=== PATIENT | male | born 1945 | race African-American/Black ===

== ENCOUNTER 2016-11-05 01:30 | Inpatient (IN) | payer OTHER ==
[2016-11-05] VITALS (10 sets, daily range): BP systolic 152–170; BP diastolic 80–92; PULSE 67–76; TEMP 36.7–37.7; O2SAT 93–100; Ht 170.2 cm; Wt 96.7 kg
[~2016-11-05] VITALS: Ht 170.2 cm; Wt 96.7 kg
--- NOTE | 2016-11-05 01:48 | EMERGENCY ROOM VISIT NOTE ---
History Report prepared by Jewel: Judi Pruett Under the Supervision of: Dr. Adams Land M.D. First contact with patient: 01:38 Chief Complaint: SYNCOPE Stated Complaint: SYNCOPE History of Present Illness The patient is a 71 year old male who presents to the Emergency Room with complaints of an episode of near syncope that occurred this morning. Per patient 's daughter, the patient never completely lost consciousness but was unresponsive for about 10 minutes. He appeared pale, sweaty, and his eyes were rolled back. He had several episodes of emesis. Currently, he is much more oriented, but is still very sleepy, per daughter. His daughter notes that he has had similar episodes of near syncope/altered mental status in the past. The patient has a history of hypertension and asthma. He does not have a history of heart problems. Denies chest pain, shortness of breath, or other complaints. His daughter notes that he did smoke marijuana a few hours ago. Denies any other drug use or alcohol use. The patient is on atenolol, amlodipine, hydrochlorothiazide, terazosin, and aspirin. Source of History: patient, family (daughter) Onset: this morning Position: other (global) Quality: other (near syncope) Timing: other (episode) Associated Symptoms: + vomiting, No LOC, No SOB, No chest pain Note: Other symptoms: tired Review of Systems See HPI for pertinent positives & negatives. A total of 10 systems reviewed and were otherwise negative. Past Medical & Surgical Medical Problems: (1) Altered mental status (2) Asthma (3) HTN (hypertension) Family History No pertinent family history stated. Social History Drug Use: marijuana Current/Historical Medications Scheduled Amlodipine (Norvasc), 10 MG PO QAM Aspirin (Aspirin Ec), 162 MG PO QAM Atenolol (Tenormin), 25 MG PO QAM Hydrochlorothiazide (Hctz), 25 MG PO QAM Terazosin Hcl (Hytrin), 2 MG PO HS Scheduled PRN Dimenhydrinate (Motion Sickness), 50 MG PO DIRECTED PRN for Dizziness or Vertigo Allergies Coded Allergies: Shellfish (Verified Allergy, Severe, SHORTNESS OF BREATH, 11/05/16) Physical Exam Vital Signs Date Time Temp Pulse Resp B/P Pulse Ox O2 Delivery O2 Flow Rate FiO2 11/05/16 02:26 56 16 155/90 98 Nasal Cannula 2.0 11/05/16 01:47 36.7 53 14 161/91 98 Nasal Cannula 2.0 11/05/16 01:38 49 Physical Exam GENERAL: Patient is tired appearing, appears to be under the influence of a sedative, and in no acute distress. HEENT: No acute trauma, normocephalic atraumatic, mucous membranes moist, no nasal congestion, no scleral icterus, large lower lip (daughter states this is normal size for him). NECK: No stridor, no adenopathy, no meningismus, trachea is midline. LUNGS: No dyspnea. Clear to auscultation and equal bilaterally. No wheeze, no rhonchi. HEART: Bradycardic rate and regular rhythm. No murmurs, rubs, gallops appreciated. ABDOMEN: Soft, nontender, bowel sounds positive, no masses appreciated, no peritonitis. BACK: No midline tenderness, no CVA tenderness EXTREMITIES: Normal motion all extremities, no cyanosis, no edema. NEUROLOGIC: Alert and oriented but somnolent, no acute motor or sensory deficits , no focal weakness, cranial nerves grossly intact. SKIN: No rash, no jaundice, no diaphoresis. Medical Decision & Procedures ER Provider Diagnostic Interpretation: CT results as stated below per interpretation by me and the radiologist: CT HEAD: No intracranial hemorrhage or CT evidence of acute infarct. The ventricles are prominent out of proportion to the sulci. May represent central volume loss or hydrocephalus. Confluent areas of nonspecific periventricular white matter low- attenuation. 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 No midline shift. Incidental 5 mm left sinus osteoma. Radiologist: Louis Islas MD. X ray results are stated below per my interpretation: Chest: 1 view: No infiltrate, no effusion, normal cardiac border. Chronic lung disease. Laboratory Results 11/05/16 01:40 Red Blood Count 4.15, Mean Corpuscular Volume 88.7, Mean Corpuscular Hemoglobin 30.1, Mean Corpuscular Hemoglobin Concent 34.0, Mean Platelet Volume 11.8, Neutrophils (%) (Auto) 20.7, Lymphocytes (%) (Auto) 67.4, Monocytes (%) (Auto) 7.7, Eosinophils (%) (Auto) 3.8, Basophils (%) (Auto) 0.4, Neutrophils # (Auto) 1.10, Lymphocytes # (Auto) 3.57, Monocytes # (Auto) 0.41, Eosinophils # (Auto) 0.20, Basophils # (Auto) 0.02 11/05/16 01:40 Test 11/05/16 01:40 11/05/16 01:43 11/05/16 02:06 White Blood Count 5.30 K/uL (4.8-10.8) Red Blood Count 4.15 M/uL (4.7-6.1) Hemoglobin 12.5 g/dL (14.0-18.0) Hematocrit 36.8 % (42-52) Mean Corpuscular Volume 88.7 fL (80-100) Mean Corpuscular Hemoglobin 30.1 pg (25-34) Mean Corpuscular Hemoglobin Concent 34.0 g/dl (32-36) Platelet Count 201 K/uL (130-400) Mean Platelet Volume 11.8 fL (7.4-10.4) Neutrophils (%) (Auto) 20.7 % Lymphocytes (%) (Auto) 67.4 % Monocytes (%) (Auto) 7.7 % Eosinophils (%) (Auto) 3.8 % Basophils (%) (Auto) 0.4 % Neutrophils # (Auto) 1.10 K/uL (1.4-6.5) Lymphocytes # (Auto) 3.57 K/uL (1.2-3.4) Monocytes # (Auto) 0.41 K/uL (0.11-0.59) Eosinophils # (Auto) 0.20 K/uL (0-0.5) Basophils # (Auto) 0.02 K/uL (0-0.2) RDW Standard Deviation 44.7 fL (36.4-46.3) RDW Coefficient of Variation 13.7 % (11.5-14.5) Immature Granulocyte % (Auto) 0.0 % Immature Granulocyte # (Auto) 0.00 K/uL (0.00-0.02) Ovalocytes 1+ D-Dimer 220 ug/L FEU (0-500) Anion Gap 6.0 mmol/L (3-11) Est Creatinine Clear Calc Drug Dose 40.7 ml/min Estimated GFR () 38.3 Estimated GFR (Non- 33.1 BUN/Creatinine Ratio 12.0 (10-20) Bedside Glucose 95 mg/dl (70-99) Calcium Level 9.9 mg/dl (8.5-10.1) Total Bilirubin 0.4 mg/dl (0.2-1) Direct Bilirubin < 0.1 mg/dl (0-0.2) Aspartate Amino Transf (AST/SGOT) 39 U/L (15-37) Alanine Aminotransferase (ALT/SGPT) 52 U/L (12-78) Alkaline Phosphatase 81 U/L (45-117) Total Creatine Kinase 304 U/L (39-308) Creatine Kinase MB 2.8 ng/ml (0.5-3.6) Creatine Kinase MB Ratio 0.9 (0-3.0) Troponin I < 0.015 ng/ml (0-0.045) Total Protein 8.9 gm/dl (6.4-8.2) Albumin 4.1 gm/dl (3.4-5.0) Ethyl Alcohol mg/dL < 3.0 mg/dl (0-3) Laboratory results as reviewed by me. ECG Indication: other (near syncope) Rate (beats per minute): 51 Rhythm: sinus bradycardia Findings: no acute ischemic change, no ectopy, other (nonspecific T wave inversion) Comparison ECG Date: no prior available ED Course 0139: The patient was evaluated in room C11. A complete history and physical exam was performed. 0340: I reassessed the patient. He was sleeping. 0417: I discussed the case with Dr. Kunal Millard [facility] Hospitalist. The patient will be evaluated for further management. Medical Decision Differential: Vaso-vagal, Intracerebral Event, Neurologic, Infectious, Volume Deficiency, Hypoglycemia, Electrolyte Abnormality, Cardiac Source, Toxicologic, amongst other pathologies entertained. 71 yr old male arrives s/p a 10 minute episode of AMS. He apparently was smoking marijuana earlier in the day. He is in no distress though is a bit somnolent currently, likely marijuana related. CT with questionable hydrocephalus vs chronic disease. No acute neuro deficits thus I do not feel requires emergent Neurosurgical intervention. EKG with some t wave inversions of uncertain significance though with initial trop negative will hold on any blood thinners. Labs otherwise negative. He is stable in no distress though continues to be mildly somnolent. Will need to come in for syncopal work-up. Consults Time Called: 0400 Consulting Physician: Dr. Kunal Millard [facility] Hospitalist Returned Call: [phone] I discussed the case with him. The patient will be evaluated for further management. Impression Primary Impression: Syncope Additional Impressions: Altered mental status Marijuana use Bradycardia Scribe Attestation The scribe's documentation has been prepared under my direction and personally reviewed by me in its entirety. I confirm that the note above accurately reflects all work, treatment, procedures, and medical decision making performed by me. Departure Information Dispostion Being Evaluated By Hospitalist Patient Instructions [facility] Problem Qualifiers Primary Impression: Syncope Syncope type: unspecified Qualified Codes: R55 - Syncope and collapse Additional Impressions: Altered mental status Altered mental status type: transient alteration of awareness Qualified Codes : R40.4 - Transient alteration of awareness
[2016-11-05 01:59] LABS: HEMATOCRIT 36.8 % (42-52); MEAN CELL VOLUME 88.7 fL (80-100); MEAN CORPUSCULAR HEMOGLOBIN 30.1 pg (25-34); MEAN PLATELET VOLUME 11.8 fL (7.4-10.4); PLATELET COUNT 201 K/uL (130-400); RED BLOOD COUNT 4.15 M/uL (4.7-6.1)
[2016-11-05 02:17] LABS: BLOOD UREA NITROGEN 24 mg/dl (7-18); CALCIUM 9.9 mg/dl (8.5-10.1); CARBON DIOXIDE 31 mmol/L (21-32); CHLORIDE 105 mmol/L (98-107); GLUCOSE 111 mg/dl (70-99); POTASSIUM 3.2 mmol/L (3.5-5.1); SODIUM 142 mmol/L (136-145)
[2016-11-05 02:22] LABS: CKMB/CK RATIO 0.9 (0-3.0)
[2016-11-05] MEDS ORDERED: HYT/2 PO (02:59)
[2016-11-05] MEDS ORDERED: ATEN-173 PO (02:59)
[2016-11-05] MEDS ORDERED: HYDR25TA4 PO (02:59)
[2016-11-05] MEDS ORDERED: ASPI81TA28 PO (02:59)
[2016-11-05] MEDS ORDERED: DIME50TA2 PO (02:59)
[2016-11-05] MEDS ORDERED: AMLO-114 PO (02:59)
[2016-11-05 03:03] LABS: BASO % 0.4 %; BASO ABS # 0.02 K/uL (0-0.2); COMPLETE YES; EOS % 3.8 %; LYMPH % 67.4 %; LYMPH ABS # 3.57 K/uL (1.2-3.4); MONO % 7.7 %; NEUT % 20.7 %; OVALOCYTES 1+
[2016-11-05 04:30] LABS: ALKALINE PHOSPHATASE 81 U/L (45-117); ALT/SGPT 52 U/L (12-78); AST/SGOT 39 U/L (15-37)
[2016-11-05] MEDS ORDERED: ACETAMINOPHEN 325 MG TAB PO PRN ×2 (04:45)
[2016-11-05] MEDS ORDERED: DiphenhydrAMINE HCL 50 MG/ML VIAL IV PRN (04:45)
[2016-11-05] MEDS ORDERED: NITROGLYCERIN 0.4 MG SL PER TAB CHARGE SL PRN (04:45)
[2016-11-05] MEDS ORDERED: ZOLPIDEM TARTRATE 5 MG TAB PO PRN (04:45)
[2016-11-05] MEDS ORDERED: MoRPHine SULFATE 2 MG/ML CARP IV PRN (04:45)
[2016-11-05] MEDS ORDERED: ONDANSETRON INJ 2 MG/ML 2 ML VIAL IV PRN (04:45)
[2016-11-05] MEDS ORDERED: LORAZEPAM 2 MG/ML 1 ML VIAL IV PRN (04:45)
[2016-11-05] MEDS ORDERED: ACETAMINOPHEN IV 100 ML IV PRN (04:45)
[2016-11-05] MEDS ORDERED: PROMETHAZINE HCL INJ 12.5 MG in SODIUM CHLORIDE 0.9% 50ML 50 ML IV PRN (04:45)
--- NOTE | 2016-11-05 04:55 | History and Physical ---
History & Physical Date & Time of Service: Nov 05, 2016 at 04:41 Chief Complaint: Syncope Primary Care Physician: No Doctor, Assigned History of Present Illness Source: patient, family The patient is a 71-year-old male who presents emergency department with an unresponsive episode of 10 minutes duration witnessed by his daughter that consisted of appearing pale, sweaty and eyes rolling back in his head, along with several episodes of emesis. Since arrival in the emergency department, the patient has become more oriented but daughter reports is still very sleepy and lethargic. He has history of hypertension and asthma, and daughter reports she's been taking his medications as directed. She also reports that he did smoke marijuana a few hours prior to arrival. She reports that he does have an ongoing issue with imbalance, control of urination and memory. Past Medical/Surgical History Medical Problems: (1) Asthma Status: Chronic (2) HTN (hypertension) Status: Chronic Social History Smoking Status: Never Smoker Smokeless Tobacco Use: No Alcohol Use: none Drug Use: marijuana Housing status: lives with family Occupational Status: retired Multi-Drug Resistant Organisms History of MDRO: No Allergies Coded Allergies: Shellfish (Verified Allergy, Severe, SHORTNESS OF BREATH, 11/05/16) Home Medications Scheduled Amlodipine (Norvasc), 10 MG PO QAM Aspirin (Aspirin Ec), 162 MG PO QAM Atenolol (Tenormin), 25 MG PO QAM Hydrochlorothiazide (Hctz), 25 MG PO QAM Terazosin Hcl (Hytrin), 2 MG PO HS Scheduled PRN Dimenhydrinate (Motion Sickness), 50 MG PO DIRECTED PRN for Dizziness or Vertigo Review of Systems The patient denies chest pain, palpitations, shortness of breath, cough, lower extremity swelling, vision change, hearing change, sore throat, fevers, chills, sweats, weight change, abdominal pain, pelvic pain, blood in urine or stool, dysuria, rash, abnormal bruising or bleeding, focal weakness, numbness or tingling in arms or legs The review of systems is otherwise negative other than for that already noted above, and at least 10 systems have been reviewed. Physical Exam Vital Signs Date Time Temp Pulse Resp B/P Pulse Ox O2 Delivery O2 Flow Rate FiO2 11/05/16 04:35 60 20 146/89 97 Room Air 11/05/16 02:26 56 16 155/90 98 Nasal Cannula 2.0 11/05/16 01:47 36.7 53 14 161/91 98 Nasal Cannula 2.0 11/05/16 01:38 49 The patient is lethargic, responds slowly to some questions but eyes remain closed, normocephalic and atraumatic, lying in bed and in no acute distress. HEENT--PERRL, EOMI, mucous membranes and oropharynx dry. Neck--supple, no JVD or bruits, thyroid normal, trachea midline, no adenopathy. Heart--normal S1 and S2, no extra beats, no murmurs, rubs or gallops. Lungs--clear bilaterally with good air movement, no respiratory distress, no accessory muscle use. Abdomen--normal bowel sounds and soft, nontender and nondistended, no hernias or masses, no organomegaly. Extremities--no cyanosis, clubbing or edema. There are good distal pulses b/l. Dermatologic--normal skin turgor, normal color, warm and dry, no abnormal lymph nodes, no rash. Neurologic--cranial nerves II through XII grossly intact. Rheumatologic--normal range of motion, nontender, muscles and joints. Psychiatric--lethargic, minimally responsive Diagnostics Laboratory Results Results Past 24 Hours Test 11/05/16 01:40 11/05/16 01:43 11/05/16 02:06 Range/Units White Blood Count 5.30 4.8-10.8 K/uL Red Blood Count 4.15 4.7-6.1 M/uL Hemoglobin 12.5 14.0-18.0 g/dL Hematocrit 36.8 42-52 % Mean Corpuscular Volume 88.7 80-100 fL Mean Corpuscular Hemoglobin 30.1 25-34 pg Mean Corpuscular Hemoglobin Concent 34.0 32-36 g/dl Platelet Count 201 130-400 K/uL Mean Platelet Volume 11.8 7.4-10.4 fL Neutrophils (%) (Auto) 20.7 % Lymphocytes (%) (Auto) 67.4 % Monocytes (%) (Auto) 7.7 % Eosinophils (%) (Auto) 3.8 % Basophils (%) (Auto) 0.4 % Neutrophils # (Auto) 1.10 1.4-6.5 K/uL Lymphocytes # (Auto) 3.57 1.2-3.4 K/uL Monocytes # (Auto) 0.41 0.11-0.59 K/uL Eosinophils # (Auto) 0.20 0-0.5 K/uL Basophils # (Auto) 0.02 0-0.2 K/uL RDW Standard Deviation 44.7 36.4-46.3 fL RDW Coefficient of Variation 13.7 11.5-14.5 % Immature Granulocyte % (Auto) 0.0 % Immature Granulocyte # (Auto) 0.00 0.00-0.02 K/uL Ovalocytes 1+ D-Dimer 220 0-500 ug/L FEU Sodium Level 142 136-145 mmol/L Potassium Level 3.2 3.5-5.1 mmol/L Chloride Level 105 98-107 mmol/L Carbon Dioxide Level 31 21-32 mmol/L Anion Gap 6.0 3-11 mmol/L Blood Urea Nitrogen 24 7-18 mg/dl Creatinine 2.00 0.60-1.40 mg/dl Est Creatinine Clear Calc Drug Dose 40.7 ml/min Estimated GFR () 38.3 Estimated GFR (Non- 33.1 BUN/Creatinine Ratio 12.0 10-20 Bedside Glucose 95 70-99 mg/dl Random Glucose 111 70-99 mg/dl Calcium Level 9.9 8.5-10.1 mg/dl Total Bilirubin 0.4 0.2-1 mg/dl Direct Bilirubin < 0.1 0-0.2 mg/dl Aspartate Amino Transf (AST/SGOT) 39 15-37 U/L Alanine Aminotransferase (ALT/SGPT) 52 12-78 U/L Alkaline Phosphatase 81 45-117 U/L Total Creatine Kinase 304 39-308 U/L Creatine Kinase MB 2.8 0.5-3.6 ng/ml Creatine Kinase MB Ratio 0.9 0-3.0 Troponin I < 0.015 0-0.045 ng/ml Total Protein 8.9 6.4-8.2 gm/dl Albumin 4.1 3.4-5.0 gm/dl Ethyl Alcohol mg/dL < 3.0 0-3 mg/dl CXR normal EKG EKG shows sinus bradycardia 51, with mild ST segment flattening and T-wave inversion. Impression Assessment and Plan Unresponsive episode, with continued lethargy, EKG changes suggestive of lateral ischemia, an CT of brain suggestive of possible hydrocephalus. Abnormal EKG--the patient will be admitted to the telemetry unit, for serial cardiac enzymes, cardiac rhythm monitoring and a 2-D echocardiogram with Dopplers. We'll continue amlodipine 10 mg by mouth every morning, enteric- coated aspirin 160 mg by mouth every morning, there is Zosyn 2 mg by mouth at bedtime. We'll split atenolol from 25 mg every morning to 12.5 mg by mouth twice a day, and hold HCTZ 25 mg every morning due to renal sufficiency and hypokalemia. Renal insufficiency/hypokalemia--creatinine was 2.0 and potassium was 3.2. We' ll hold HCTZ as noted above, placed on normal saline at 100 ML's per hour, and repeat BMP and magnesium levels. We'll order a renal ultrasound. Volume loss on CT suggestive of possible hydrocephalus--we'll order a MRI the brain for further assessment. He does of note, by the daughter's history, have imbalance, urinary dysfunction, and declining mental function. Drug use--recent use of marijuana. 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 Y/N: Yes Risk Level: Moderate Given or contraindicated: SCD's
[2016-11-05] MEDS: SODIUM CHLORIDE 0.9% 1000ML 1,000 ML IV SCH ×2 (05:50→18:27)
--- NOTE | 2016-11-05 07:41 | DIAGNOSTIC IMAGING REPORT ---
CHEST ONE VIEW PORTABLE CLINICAL HISTORY: Syncope. Acute change in mental status. COMPARISON STUDY: No previous studies for comparison. FINDINGS: The heart is mildly enlarged. There is mild basilar interstitial thickening. There is no lobar consolidation. There is no overt failure. There are no pleural effusions.[ IMPRESSION: Mild cardiomegaly and mild basilar interstitial thickening. No evidence of lobar consolidation. Electronically signed by: Javad Newberry M.D. 11/05/2016 7:40 AM Dictated Date/Time: 11/05/2016 7:40 AM
--- NOTE | 2016-11-05 08:04 | DIAGNOSTIC IMAGING REPORT ---
CT HEAD WITHOUT CONTRAST (CT) CLINICAL HISTORY: Syncope. Acute change in mental status. COMPARISON STUDY: No previous studies for comparison. TECHNIQUE: Axial CT of the brain is performed from the vertex to the skull base. IV contrast was not administered for this examination. CT DOSE: 537.48 mGy.cm FINDINGS: No intra or extra-axial mass lesions are visualized. There is no CT evidence of acute cortical infarction. There is no evidence of midline shift. There is no acute hemorrhage. No calvarial fractures are visualized. There are patchy white matter hypodensities likely on a small vessel basis. There is a deep white matter lacunar infarct adjacent to the body left lateral ventricle. There is mild ventricular dilatation, likely secondary to volume loss. There is no evidence of acute sinusitis. 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 IMPRESSION: No acute intracranial findings Electronically signed by: Javad Newberry M.D. 11/05/2016 8:03 AM Dictated Date/Time: 11/05/2016 8:01 AM
--- NOTE | 2016-11-05 08:07 | DIAGNOSTIC IMAGING REPORT ---
EXAMINATION: RENAL ULTRASOUND CLINICAL HISTORY: RENAL INSUFFICIENCY COMPARISON STUDY: None FINDINGS: The right kidney measures 9.6 cm.. The left kidney measures 10.5 cm. There is no evidence of hydronephrosis. There is a 9 mm upper pole right renal cyst. No bladder abnormalities are visualized. Bilateral ureteral jets were visualized. The prostate is enlarged, measuring 6.5 cm in diameter.. IMPRESSION : 1. 9 mm upper pole right renal cyst 2. No evidence of hydronephrosis 3. Symmetric renal size and cortical thickness 4. Prostamegaly Electronically signed by: Javad Newberry M.D. 11/05/2016 8:06 AM Dictated Date/Time: 11/05/2016 8:04 AM
[2016-11-05] MEDS: AMLODIPINE BESYLATE 5 MG TAB PO SCH (08:30)
[2016-11-05] MEDS: ASPIRIN 81 MG ECTAB PO SCH (08:31)
--- NOTE | 2016-11-05 10:55 | DIAGNOSTIC IMAGING REPORT ---
MRI OF THE BRAIN WITHOUT AND WITH IV CONTRAST CLINICAL HISTORY: Syncope. Acute change in mental status. Ventricular dilatation. COMPARISON STUDY: CT scan dated 11/05/2016 TECHNIQUE: MRI of the brain was performed from the vertex to the skull base utilizing various T1 and T2 weighted sequences. Following the IV administration of 9 mL of Gadavist contrast, additional enhanced images were obtained. FINDINGS: Sagittal T1, axial diffusion, proton density and T2 weighted axial, coronal FLAIR, and pre and post axial T1-weighted images were acquired. These were supplemented with post gadolinium coronal T1 weighted images. No intra or extra-axial mass lesions are visualized. Axial diffusion-weighted images reveal no evidence of acute or subacute infarction. There is mild to moderate ventricular dilatation, slightly greater than expected for the degree of cortical atrophy Proton density T2-weighted and FLAIR images reveal moderate foci of increased T2 signal within the periventricular deep white matter. There is an old lacunar infarct within the white matter adjacent to the left lateral ventricle. There are no abnormal flow voids. There is no evidence of pathologic enhancement. IMPRESSION: 1. No evidence of intracranial mass 2. No evidence of acute or subacute infarction 3. Moderate foci of increased T2 signal within the periventricular deep white matter 3. Ventricular dilatation, slightly greater than expected for the degree of cortical atrophy. Clinical correlation in regards to normal pressure hydrocephalus is recommended. Electronically signed by: Javad Newberry M.D. 11/05/2016 10:54 AM Dictated Date/Time: 11/05/2016 10:50 AM
[2016-11-05 17:39] LABS: URINE APPEARANCE CLEAR (CLEAR); URINE BILIRUBIN NEG (NEG); URINE COLOR YELLOW; URINE EPITHELIAL CELL AUTO 0-5 /lpf (0-5); URINE NITRITE NEG (NEG); URINE SPECIFIC GRAVITY 1.025 (1.000-1.030); UROBILINOGEN NEG (NEG); ZZUR CULT IF INDIC CLEAN CATCH NO
[2016-11-05 17:40] LABS: MANUAL MICROSCOPIC REQUIRED? NO; REVIEW REQ? NO
[2016-11-05 17:56] LABS: BENZODIAZEPINE, URINE NEG (NEG); COCAINE,URINE NEG (NEG); PHENCYCLIDINE, URINE NEG (NEG)
--- NOTE | 2016-11-05 20:19 | Progress Note ---
Progress Note Patient was admitted in the early am this day. I did evaluate the patient and do a physical exam. I reported to the patient the findings of his studies to date. Then Dr. Martinez spoke with the daughter as I was attending another patient.
[2016-11-05 20:34] LABS: BASO % 0.1 %; BASO ABS # 0.01 K/uL (0-0.2); COMPLETE YES; EOS % 1.3 %; HEMATOCRIT 34.2 % (42-52); IG% 0.1 %; LYMPH % 34.2 %; LYMPH ABS # 2.34 K/uL (1.2-3.4); MEAN CORPUSCULAR HEMOGLOBIN 30.1 pg (25-34); MEAN PLATELET VOLUME 11.4 fL (7.4-10.4); MONO % 8.2 %; NEUT % 56.1 %; PLATELET COUNT 178 K/uL (130-400); RED BLOOD COUNT 3.76 M/uL (4.7-6.1); WHITE BLOOD COUNT 6.85 K/uL (4.8-10.8)
[2016-11-05 21:04] LABS: BUN/CREATININE RATIO 12.7 (10-20); CALCIUM 9.4 mg/dl (8.5-10.1); MAGNESIUM 1.8 mg/dl (1.8-2.4)
[2016-11-06] VITALS (8 sets, daily range): BP systolic 134–178; BP diastolic 74–92; PULSE 65–70; TEMP 36.6–37.2; O2SAT 92–96
[2016-11-06] MEDS: ASPIRIN 81 MG ECTAB PO SCH (07:37)
[2016-11-06] MEDS: AMLODIPINE BESYLATE 5 MG TAB PO SCH (07:38)
--- NOTE | 2016-11-06 10:03 | Neurology Consultation ---
Neurology Consultation Date of Consultation: Nov 06, 2016. Attending Physician: Suhail Syed M.D. Primary Care Physician: No Doctor, Assigned Reason for Consultation: Patient is a 71-year-old, who was asked to see the request of Dr. Syed for neurologic consultation regarding the question of normal pressure hydrocephalus History of Present Illness Source: patient, caregiver, hospital records The patient lives in [facility] and is here in the [place] area visiting his daughter. Patient tells me that he's never had a stroke or convulsion/seizure disorder Over the last year he has had a number of issues which she did not have previous. He has had proximally for passing out episodes over the last year. He does not get much of a warning although occasionally he may get a little nausea. He will be out for so many minutes and doesn't recall the incident. He can have vomiting afterwards. He does not have any noted tongue biting or incontinence of urine and has not had a generalized tonic-clonic seizure activity associated. His most recent one was yesterday. He became pale and sweaty and his eyes rolled back. He vomited 3 times. He was unresponsive for 10 minutes. Directed emergency room at 0138 hours on November 05. Blood pressure was 161/91 , pulse was 53 and regular, respiratory rate was 14 and temperature 36.7. O2 saturation was 98%. He was somnolent but otherwise unremarkable. CT scan of the head showed some possible hydrocephalus diffusely. Chest x-ray was unremarkable. CBC showed a mild anemia chem profile showed elevated BUN and creatinine. Patient had an MRI of the brain which showed no acute stroke. There was moderate old small vessel ischemic disease diffusely. Ventricular system seemed enlarged slightly out of proportion to the amount of atrophy which was minimal. This morning, the patient feels back to baseline. He has no weakness, dizziness , numbness, headache, pain, confusion, chest pain, or abdominal discomfort. With further history he tells me that over the last year his memory has been off and gradually been a little bit worse. Over the last year his balance has been poor and he uses a cane. He has not fallen. He has frequency and urgency and can have incontinence at times. Past Medical/Surgical History Medical Problems: (1) Bradycardia Status: Acute (2) Marijuana use Status: Acute (3) Syncope Status: Acute Hypertension, for at least 10 years Asthma Memory dysfunction Gait disturbance Urinary incontinence History of left Love's palsy 5 years ago Post-tonsillectomy in the past Recent scrotal cyst surgery Family History Mother in her late 70s of some type of cancer Father age 84 heart disease Social History Patient never smoked cigarettes. He does smoke marijuana. 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[employer]INTERR[employer] and has been around paints, varnishes and other fixatives Smoking Status: Never smoker Smokeless Tobacco Use: No Alcohol Use: occasionally Drug Use: marijuana Occupation Status: retired Allergies Coded Allergies: Shellfish (Verified Allergy, Severe, SHORTNESS OF BREATH, 11/05/16) Current Inpatient Medications Current Inpatient Medications Medications (Trade) Dose Ordered Sig/Charlene Route Start Time Stop Time Status Last Admin Dose Admin Zolpidem Tartrate (Ambien Tab) 5 mg HSZ PRN PO 11/05/16 04:45 12/05/16 04:44 Nitroglycerin (Nitrostat Tab) 0.4 mg UD PRN SL 11/05/16 04:45 12/05/16 04:44 Amlodipine Besylate (Norvasc Tab) 10 mg QAM PO 11/05/16 09:00 12/05/16 08:59 11/06/16 07:38 10 MG Aspirin (Ecotrin Tab) 162 mg QAM PO 11/05/16 09:00 12/05/16 08:59 11/06/16 07:37 162 MG Terazosin HCl (Hytrin Cap) 2 mg HS PO 11/05/16 21:00 12/05/16 20:59 11/05/16 20:07 2 MG Lorazepam (Ativan Inj) 0.5 mg Q4H PRN IV 11/05/16 04:45 12/05/16 04:44 Acetaminophen (Tylenol Tab) 650 mg Q4H PRN PO 11/05/16 04:45 12/05/16 04:44 11/05/16 20:55 650 MG Diphenhydramine HCl 25 mg 25 mg Q4H PRN IV 11/05/16 04:45 12/05/16 04:44 Promethazine HCl/ Sodium Chloride (Phenergan Inj/ Nss 50ml) 50.5 ml @ 202 mls/hr Q4H PRN IV 11/05/16 04:45 12/05/16 04:44 Ondansetron HCl (Zofran Inj) 4 mg Q6H PRN IV 11/05/16 04:45 12/05/16 04:44 Morphine Sulfate 2 mg 2 mg Q2H PRN IV 11/05/16 04:45 11/19/16 04:44 Acetaminophen (Ofirmev Iv) 100 ml @ 400 mls/hr Q8H PRN IV 11/05/16 04:45 12/05/16 04:44 Atenolol (Tenormin Tab) 12.5 mg BID PO 11/05/16 09:00 12/05/16 08:59 11/06/16 07:37 12.5 MG Review of Systems Constitutional: No fatigue, No weakness Eyes: No diplopia, No worsening of vision ENT: No hearing loss, No sore throat, No tinnitus Respiratory: No cough, No shortness of breath Cardiovascular: No chest pain, No palpitations Abdomen: No nausea, No pain Musculoskeletal: No joint pain, No muscle pain Genitourinary - Male: + urinary frequency, + urinary incontinence, + urinary urgency, No dysuria Neurologic: + balance problems, + memory loss, No numbness/tingling, No vertigo , No weakness Psychiatric: No anxiety, No depression symptoms Endocrine: No fatigue Hematologic / Lymphatic: No abnormal bleeding/bruising Integumentary: No rash Allergic / Immunologic: No hives Physical Exam Vital Signs (Past 24 Hrs): Date Time Temp Pulse Resp B/P Pulse Ox O2 Delivery O2 Flow Rate FiO2 11/06/16 08:00 Room Air 11/06/16 07:55 36.6 69 16 156/87 92 Room Air 11/06/16 04:00 Room Air 11/06/16 03:55 37.2 68 18 163/83 94 Room Air 11/05/16 23:59 Room Air 11/05/16 23:40 37.4 72 20 152/83 93 Room Air 11/05/16 21:52 37.7 11/05/16 20:00 Room Air 11/05/16 19:40 37.7 71 20 169/84 94 Room Air 11/05/16 16:00 100 Nasal Cannula 2.0 11/05/16 15:24 37.0 75 18 156/80 98 Nasal Cannula 2.0 11/05/16 12:19 36.7 67 16 160/90 98 Room Air 11/05/16 12:00 100 Nasal Cannula 2.0 Patient is right-handed. The patient is awake and alert. Speech is normal without aphasia or dysarthria. Mentation and thought processes are grossly intact with orientation and normal fund of knowledge, although he doesn't know the day or the date. Mood and affect are normal and appropriate. Appearance and grooming are normal. The discs are sharp with positive venous pulsations. There are no exudates, hemorrhages, or blood vessel changes seen. Pupils are 4mm bilaterally and reactive to light. Extraocular eye muscles are intact without nystagmus. Visual acuity and visual garcia seem normal grossly to confrontation. There are no deficits to sensation of the face bilaterally. Corneal reflexes are positive bilaterally. Facial strength and symmetry is normal bilaterally. He did have some mild synkinesis on the left from a previous Love's palsy 5 years ago. Hearing seems intact grossly to voice and finger rub. Palate moves well without asymmetry. There is normal sternocleidomastoid and trapezius strength bilaterally. Tongue is midline with good strength bilaterally. Neck is with full range of motion without discomfort. There are no cervical bruits. There are no cranial or ocular bruits. Heart is without murmur. Cervical, thoracic, and lumbar spine are nontender to palpation. Gait is tenuous but somewhat narrow based with cautious turns. Stance is normal eyes open or closed. With outstretched arms there is no drift. There are no resting, postural, or action tremors. There is no ataxia with [id number] testing. There is good facility in the hands. There are no abnormal involuntary movements noted. Motor strength is 5/5 diffusely in the arms bilaterally including deltoids, biceps, brachioradialis, wrist flexors and extensors, manager [employer], and intrinsic hand muscles. Motor strength is 5/5 diffusely in the legs bilaterally including hip flexors, quadriceps, hamstring, gastrocnemius, tibialis anterior, tibialis posterior, and peroneii muscles bilaterally. Toe extensors are normal and there is good bulk in the extensor digitorum brevis muscle bilaterally. The limbs have good tone without rigidity or spasticity, and there is no atrophy noted. Muscle bulk is normal, there is no tenderness, no myotonia noted to percussion, and no fasciculations seen. Sensory examination is intact to pin and touch throughout all four limbs. Reflexes are 1/4 in the biceps, triceps, brachioradialis, quadriceps, and Achilles tendons bilaterally. Toes are downgoing with plantar stimulation bilaterally. Peripheral pulses are present and of normal quality distally in all four limbs. There is no peripheral edema noted. Laboratory Results Past 24 Hours: 11/05/16 20:15 Red Blood Count 3.76, Mean Corpuscular Volume 91.0, Mean Corpuscular Hemoglobin 30.1, Mean Corpuscular Hemoglobin Concent 33.0, Mean Platelet Volume 11.4, Neutrophils (%) (Auto) 56.1, Lymphocytes (%) (Auto) 34.2, Monocytes (%) (Auto) 8.2, Eosinophils (%) (Auto) 1.3, Basophils (%) (Auto) 0.1, Neutrophils # (Auto) 3.84, Lymphocytes # (Auto) 2.34, Monocytes # (Auto) 0.56, Eosinophils # (Auto) 0.09, Basophils # (Auto) 0.01 11/05/16 20:15 Test 11/05/16 17:20 11/05/16 20:15 Urine Color YELLOW Urine Appearance CLEAR (CLEAR) Urine pH 5.0 (4.5-7.5) Urine Specific [place] 1.025 (1.000-1.030) Urine Protein 1+ (NEG) Urine Glucose (UA) NEG (NEG) Urine Ketones NEG (NEG) Urine Occult Blood NEG (NEG) Urine Nitrite NEG (NEG) Urine Bilirubin NEG (NEG) Urine Urobilinogen NEG (NEG) Urine Leukocyte Esterase NEG (NEG) Urine WBC (Auto) 0 /hpf (0-5) Urine RBC (Auto) 0-4 /hpf (0-4) Urine Hyaline Casts (Auto) 1-5 /lpf (0-5) Urine Epithelial Cells (Auto) 0-5 /lpf (0-5) Urine Bacteria (Auto) NEG (NEG) Urine Opiates Screen NEG (NEG) Urine Methadone, Qualitative NEG (NEG) Urine Barbiturates NEG (NEG) Urine Phencyclidine (PCP) Level NEG (NEG) Ur Amphetamine/Methamphetamine NEG (NEG) MDMA (Ecstasy) Screen NEG (NEG) Urine Benzodiazepines Screen NEG (NEG) Urine Cocaine Metabolite NEG (NEG) Urine Marijuana (THC) POS (NEG) White Blood Count 6.85 K/uL (4.8-10.8) Red Blood Count 3.76 M/uL (4.7-6.1) Hemoglobin 11.3 g/dL (14.0-18.0) Hematocrit 34.2 % (42-52) Mean Corpuscular Volume 91.0 fL (80-100) Mean Corpuscular Hemoglobin 30.1 pg (25-34) Mean Corpuscular Hemoglobin Concent 33.0 g/dl (32-36) Platelet Count 178 K/uL (130-400) Mean Platelet Volume 11.4 fL (7.4-10.4) Neutrophils (%) (Auto) 56.1 % Lymphocytes (%) (Auto) 34.2 % Monocytes (%) (Auto) 8.2 % Eosinophils (%) (Auto) 1.3 % Basophils (%) (Auto) 0.1 % Neutrophils # (Auto) 3.84 K/uL (1.4-6.5) Lymphocytes # (Auto) 2.34 K/uL (1.2-3.4) Monocytes # (Auto) 0.56 K/uL (0.11-0.59) Eosinophils # (Auto) 0.09 K/uL (0-0.5) Basophils # (Auto) 0.01 K/uL (0-0.2) RDW Standard Deviation 45.6 fL (36.4-46.3) RDW Coefficient of Variation 13.8 % (11.5-14.5) Immature Granulocyte % (Auto) 0.1 % Immature Granulocyte # (Auto) 0.01 K/uL (0.00-0.02) Anion Gap 6.0 mmol/L (3-11) Est Creatinine Clear Calc Drug Dose 38.7 ml/min Estimated GFR () 38.3 Estimated GFR (Non- 33.1 BUN/Creatinine Ratio 12.7 (10-20) Calcium Level 9.4 mg/dl (8.5-10.1) Magnesium Level 1.8 mg/dl (1.8-2.4) Imaging MRI OF THE BRAIN WITHOUT AND WITH IV CONTRAST CLINICAL HISTORY: Syncope. Acute change in mental status. Ventricular dilatation. COMPARISON STUDY: CT scan dated 11/05/2016 TECHNIQUE: MRI of the brain was performed from the vertex to the skull base utilizing various T1 and T2 weighted sequences. Following the IV administration of 9 mL of Gadavist contrast, additional enhanced images were obtained. FINDINGS: Sagittal T1, axial diffusion, proton density and T2 weighted axial, coronal FLAIR, and pre and post axial T1-weighted images were acquired. These were supplemented with post gadolinium coronal T1 weighted images. No intra or extra-axial mass lesions are visualized. Axial diffusion-weighted images reveal no evidence of acute or subacute infarction. There is mild to moderate ventricular dilatation, slightly greater than expected for the degree of cortical atrophy Proton density T2-weighted and FLAIR images reveal moderate foci of increased T2 signal within the periventricular deep white matter. There is an old lacunar infarct within the white matter adjacent to the left lateral ventricle. There are no abnormal flow voids. There is no evidence of pathologic enhancement. IMPRESSION: 1. No evidence of intracranial mass 2. No evidence of acute or subacute infarction 3. Moderate foci of increased T2 signal within the periventricular deep white matter 3. Ventricular dilatation, slightly greater than expected for the degree of cortical atrophy. Clinical correlation in regards to normal pressure hydrocephalus is recommended. Electronically signed by: Javad Newberry M.D. 11/05/2016 10:54 AM Impression 1. Syncopal episodes. Cardiovascular origin seems most likely. There is no real evidence to suggest seizure disorder although they cannot entirely be excluded. 2. Mild ventricular enlargement out of proportion to cerebral atrophy, suggestive of normal pressure hydrocephalus. On examination the patient has some mild memory issues and a history of some memory dysfunction. He also has a history of gait disturbance although he does not have maria luisa gait ataxia he is cautious and tenuous with walking and turns. He uses a cane for support. He has some history of significant urinary frequency and urgency and some history of incontinence of urine. All these symptoms would be supportive of a normal pressure hydrocephalus diagnosis. Overall then neurologic examination is largely nonfocal and MRI of the brain showed no acute stroke 3. History of hypertension. This was not adequately controlled on admission. 4. Elevated BUN and creatinine 5. Moderate old small vessel ischemia noted on MRI of the brain Plan Since the patient lives in [facility] he may want to go home and have a complete neurologic evaluation and possible treatment for NPH and syncope. He chooses to stay here and be evaluated we can get: 1. EEG awake and asleep. This can be done tomorrow 2. A lumbar puncture, including opening pressure, is needed to evaluate for secondary causes of normal pressure hydrocephalus (although the patient does not have any meningeal signs we usually look for chronic infection or inflammation) The lumbar puncture could be done under fluoroscopy tomorrow. 3. Radionucleotide cisternogram could be obtained as well. This will help determine CSF reabsorption consistent with NPH 4. ESR, B-12, TSH, RPR, and Lyme antibody titers could be obtained as well
--- NOTE | 2016-11-06 18:52 | Hospitalist Progress Note ---
Hospitalist Progress Note Date of Service Nov 06, 2016. Subjective Pt evaluation today including: conversation w/ patient, physical exam, chart review, lab review, review of studies, conversation w/ informatics consultant, review of inpatient medication list Patient is feeling well. No further syncope. Proceeding with neurologic testing this week. Additional Comments: A 10 system review was performed and all were negative. Positives were placed in the subjective section. Objective Vital Signs Date Time Temp Pulse Resp B/P Pulse Ox O2 Delivery O2 Flow Rate FiO2 11/06/16 16:00 Room Air 11/06/16 15:32 36.9 70 18 168/87 96 Room Air 11/06/16 12:00 Room Air 11/06/16 11:53 37.0 68 16 134/74 93 Room Air 11/06/16 08:00 Room Air 11/06/16 07:55 36.6 69 16 156/87 92 Room Air 11/06/16 04:00 Room Air 11/06/16 03:55 37.2 68 18 163/83 94 Room Air 11/05/16 23:59 Room Air 11/05/16 23:40 37.4 72 20 152/83 93 Room Air 11/05/16 21:52 37.7 11/05/16 20:00 Room Air 11/05/16 19:40 37.7 71 20 169/84 94 Room Air Physical Exam Notes: GEN: Awake, alert, and oriented x 3. Not in acute distress HEENT: Tm's intact, no inflammation, EOMI, PERRLA, MMM Neck: Soft, supple Lungs: CTA b/l, no r/r/w Heart: REG, nrl S1S2 without murmurs, rubs or gallops Abdomen: Soft, NT, ND, + BS EXT: No C/C/E NEURO: CN's II-XII grossly intact, non-focal Skin: warm, dry, no rashes PSYCH: pleasant, cooperative, no signs of significant anxiety or depression. Laboratory Results Last 24 Hours Test 11/05/16 20:15 White Blood Count 6.85 K/uL Red Blood Count 3.76 M/uL Hemoglobin 11.3 g/dL Hematocrit 34.2 % Mean Corpuscular Volume 91.0 fL Mean Corpuscular Hemoglobin 30.1 pg Mean Corpuscular Hemoglobin Concent 33.0 g/dl Platelet Count 178 K/uL Mean Platelet Volume 11.4 fL Neutrophils (%) (Auto) 56.1 % Lymphocytes (%) (Auto) 34.2 % Monocytes (%) (Auto) 8.2 % Eosinophils (%) (Auto) 1.3 % Basophils (%) (Auto) 0.1 % Neutrophils # (Auto) 3.84 K/uL Lymphocytes # (Auto) 2.34 K/uL Monocytes # (Auto) 0.56 K/uL Eosinophils # (Auto) 0.09 K/uL Basophils # (Auto) 0.01 K/uL RDW Standard Deviation 45.6 fL RDW Coefficient of Variation 13.8 % Immature Granulocyte % (Auto) 0.1 % Immature Granulocyte # (Auto) 0.01 K/uL Sodium Level 141 mmol/L Potassium Level 4.0 mmol/L Chloride Level 106 mmol/L Carbon Dioxide Level 29 mmol/L Anion Gap 6.0 mmol/L Blood Urea Nitrogen 25 mg/dl Creatinine 2.00 mg/dl Est Creatinine Clear Calc Drug Dose 38.7 ml/min Estimated GFR () 38.3 Estimated GFR (Non- 33.1 BUN/Creatinine Ratio 12.7 Random Glucose 100 mg/dl Calcium Level 9.4 mg/dl Magnesium Level 1.8 mg/dl Assessment and Plan 1) Syncope - no further episodes 2) ? Normal Pressure Hydrocephalus - work up under way 3) Small vessel CVD 4) CKD - stable 5) HTN - stable EEG planned as well.
[2016-11-07] VITALS (10 sets, daily range): BP systolic 101–183; BP diastolic 63–95; PULSE 58–97; TEMP 36.3–37; O2SAT 92–100
[2016-11-07] MEDS: METOPROLOL TARTRATE 1 MG/ML VIAL IV PRN (05:03)
[2016-11-07 07:07] LABS: HEMATOCRIT 35.1 % (42-52); MEAN CELL VOLUME 89.1 fL (80-100); MEAN CORPUSCULAR HEMOGLOBIN 28.9 pg (25-34); MEAN CORPUSCULAR HGB CONC 32.5 g/dl (32-36); MEAN PLATELET VOLUME 10.7 fL (7.4-10.4); PLATELET COUNT 177 K/uL (130-400); RED BLOOD COUNT 3.94 M/uL (4.7-6.1); WHITE BLOOD COUNT 4.96 K/uL (4.8-10.8)
[2016-11-07 07:37] LABS: BUN/CREATININE RATIO 13.5 (10-20); CALCIUM 9.5 mg/dl (8.5-10.1); CREATININE 1.7 mg/dl (0.60-1.40); POTASSIUM 3.9 mmol/L (3.5-5.1)
[2016-11-07] MEDS ORDERED: ALBUTEROL HFA INHALER 8.5 GM INH PRN (07:45)
[2016-11-07] MEDS ORDERED: NURSING VERBAL MED ORDER ONE (07:45)
[2016-11-07] MEDS: ASPIRIN 81 MG ECTAB PO SCH (07:48)
[2016-11-07] MEDS: AMLODIPINE BESYLATE 5 MG TAB PO SCH (07:48)
[2016-11-07 07:58] LABS: BASO % 0.4 %; BASO ABS # 0.02 K/uL (0-0.2); COMPLETE YES; EOS % 5.8 %; IG% 0.2 %; LYMPH % 51.8 %; LYMPH ABS # 2.57 K/uL (1.2-3.4); MONO % 9.5 %; NEUT % 32.3 %
--- NOTE | 2016-11-07 08:09 | Clinical Documentation Query ---
FATIMAH Serrano : CLINICAL DOCUMENTATION QUERY Patient is a 71 year old male admitted after syncopal event. H&P documentation includes "renal insufficiency" and subsequent documentation includes "CKD" not otherwise specified. Estimated GFR on admission of 33 ml/min. Please clarify as clinically appropriate. Thank you. In your clinical opinion is this patient being managed for: ( ) Chronic kidney disease, stage 3 ( ) Other explanation of clinical findings (Please Explain) ( ) Unable to determine (Please Define) ( ) Need to Discuss ( ) Not Agree The medical record reflects the following clinical findings, treatment, and risk factors. Clinical Indicators: As above Treatment: IVF, serial chemistries, holding HCTZ, renal ultrasound Risk Factors: Age, hypertension: Please clarify and document your clinical opinion in the progress notes and discharge summary. Terms such as "probable", "suspected", "likely", "questionable", "possible", or "still to be ruled out" are acceptable. IF IN AGREEMENT, YOU MUST DOCUMENT ABOVE DIAGNOSTIC STATEMENT IN DAILY PROGRESS NOTES AND DISCHARGE SUMMARY. This document is not part of the patient's record. Thank You, Maco Molina, RN [phone]
--- NOTE | 2016-11-07 09:53 | Neurology Progress Notes ---
Neurology Progress Note Date of Service Nov 07, 2016. Subjective Is this is a 71-year-old male who initially presented to the hospital for syncopal event. Reports that he said for total of 6 events. One out of the 4 events he had a prodrome of dizziness/lightheadedness. He reports that with all the others he has had no warning. He denies any chest pain, shortness of breath , heart palpitations. He does report some mild memory loss for the last year. Reports that his balance is poor and he sometimes walks with a cane. He denies any falls worsening gait dysfunction. He reports that his daughter has noted some changes in his walking. He reports some urinary urgency and sometimes some urinary incontinence due to not being able to get to the bathroom fast enough. He does have a sense that he needs to go. No personality changes or hallucinations. The patient does report that he takes a daily aspirin Objective Date Time Temp Pulse Resp B/P Pulse Ox O2 Delivery O2 Flow Rate FiO2 11/07/16 08:00 Room Air 11/07/16 07:17 36.7 67 20 158/94 93 Room Air 11/07/16 06:09 66 168/95 94 Room Air 11/07/16 05:03 70 183/92 11/07/16 04:16 36.8 70 18 183/92 92 Room Air 11/07/16 04:00 95 Room Air 11/07/16 00:26 77 171/79 68 171/87 11/06/16 23:59 95 Room Air 11/06/16 23:53 37.0 68 18 178/92 95 Room Air 11/06/16 20:00 95 Room Air 11/06/16 19:51 36.8 65 22 171/87 95 Nasal Cannula 11/06/16 16:00 Room Air 11/06/16 15:32 36.9 70 18 168/87 96 Room Air 11/06/16 12:00 Room Air 11/06/16 11:53 37.0 68 16 134/74 93 Room Air Last 24 Hours Test 11/07/16 06:42 White Blood Count 4.96 K/uL Red Blood Count 3.94 M/uL Hemoglobin 11.4 g/dL Hematocrit 35.1 % Mean Corpuscular Volume 89.1 fL Mean Corpuscular Hemoglobin 28.9 pg Mean Corpuscular Hemoglobin Concent 32.5 g/dl Platelet Count 177 K/uL Mean Platelet Volume 10.7 fL Neutrophils (%) (Auto) 32.3 % Lymphocytes (%) (Auto) 51.8 % Monocytes (%) (Auto) 9.5 % Eosinophils (%) (Auto) 5.8 % Basophils (%) (Auto) 0.4 % Neutrophils # (Auto) 1.60 K/uL Lymphocytes # (Auto) 2.57 K/uL Monocytes # (Auto) 0.47 K/uL Eosinophils # (Auto) 0.29 K/uL Basophils # (Auto) 0.02 K/uL RDW Standard Deviation 45.5 fL RDW Coefficient of Variation 13.7 % Immature Granulocyte % (Auto) 0.2 % Immature Granulocyte # (Auto) 0.01 K/uL Sodium Level 143 mmol/L Potassium Level 3.9 mmol/L Chloride Level 105 mmol/L Carbon Dioxide Level 30 mmol/L Anion Gap 8.0 mmol/L Blood Urea Nitrogen 23 mg/dl Creatinine 1.70 mg/dl Est Creatinine Clear Calc Drug Dose 45.9 ml/min Estimated GFR () 46.7 Estimated GFR (Non- 40.3 BUN/Creatinine Ratio 13.5 Random Glucose 81 mg/dl Calcium Level 9.5 mg/dl Imaging: MRI of the brain report and images were reviewed by myself. There was some concern by the radiologist that the ventricles or out of proportion to brain volume. Per my review of the MRI, there is significant bilateral subcortical T2 hyperintensities likely indicating small vessel ischemic disease. I do not find the ventricles to be that impressive. An EEG read by myself this morning was normal Exam: Gen.: Patient is alert and sitting in bed, in no acute distress. HEENT: Normocephalic /atraumatic, no scleral icterus Extremities: No gross deformities or rashes noted Neurological examination: Mental status: Patient is alert and oriented x3. Attention and concentration normal for the situation. Good fund of knowledge. Able to give her own history. Speech is fluent without any dysarthria or aphasia noted Cranial nerve: No facial asymmetry noted. Hearing grossly intact to voice Strength: Full in all extremities. Station within the bed was normal. Gait was slightly wide-based. No ataxia noted. No magnetic gait. He shouldn't put 2-3 steps to turn around. After turning around he briefly started to lose his balance. I did have him walk without his cane. Current Inpatient Medications Medications (Trade) Dose Ordered Sig/Charlene Route Start Time Stop Time Status Last Admin Dose Admin Zolpidem Tartrate (Ambien Tab) 5 mg HSZ PRN PO 11/05/16 04:45 12/05/16 04:44 Nitroglycerin (Nitrostat Tab) 0.4 mg UD PRN SL 11/05/16 04:45 12/05/16 04:44 Amlodipine Besylate (Norvasc Tab) 10 mg QAM PO 11/05/16 09:00 12/05/16 08:59 11/07/16 07:48 10 MG Aspirin (Ecotrin Tab) 162 mg QAM PO 11/05/16 09:00 12/05/16 08:59 11/07/16 07:48 162 MG Terazosin HCl (Hytrin Cap) 2 mg HS PO 11/05/16 21:00 12/05/16 20:59 11/06/16 20:36 2 MG Lorazepam (Ativan Inj) 0.5 mg Q4H PRN IV 11/05/16 04:45 12/05/16 04:44 Acetaminophen (Tylenol Tab) 650 mg Q4H PRN PO 11/05/16 04:45 12/05/16 04:44 11/05/16 20:55 650 MG Diphenhydramine HCl 25 mg 25 mg Q4H PRN IV 11/05/16 04:45 12/05/16 04:44 Promethazine HCl/ Sodium Chloride (Phenergan Inj/ Nss 50ml) 50.5 ml @ 202 mls/hr Q4H PRN IV 11/05/16 04:45 12/05/16 04:44 Ondansetron HCl (Zofran Inj) 4 mg Q6H PRN IV 11/05/16 04:45 12/05/16 04:44 Morphine Sulfate 2 mg 2 mg Q2H PRN IV 11/05/16 04:45 11/19/16 04:44 Acetaminophen (Ofirmev Iv) 100 ml @ 400 mls/hr Q8H PRN IV 11/05/16 04:45 12/05/16 04:44 Atenolol (Tenormin Tab) 12.5 mg BID PO 11/05/16 09:00 12/05/16 08:59 11/07/16 07:48 12.5 MG Metoprolol Tartrate (Lopressor Iv) 5 mg Q5M PRN IV 11/07/16 05:00 11/07/16 05:03 5 MG Albuterol (Proair Hfa) 2 puffs Q4H PRN INH 11/07/16 07:45 3 07:44 11/07/16 07:48 2 PUFFS Impression This is a 71-year-old male who presented with a syncopal episode. Most likely causes for syncopal episode is hypotension, vasovagal, or cardiogenic. No signs or symptoms concerning for seizures. I think it is unlikely that the patient has normal pressure hydrocephalus. Memory complaints could be consistent with vascular changes seen on MRI. He is taking a daily aspirin as is appropriate for cerebral small vessel ischemic disease. The episodes of urinary continence appear to be more due to urgency and inability to make it to the bathroom in time. In addition the patient does not have a magnetic gait which is typical for NPH. Plan Overall, while a lumbar puncture with opening pressure could be considered for further evaluation, I do not feel strongly about this procedure, as I think it unlikely that he has NPH It would not be unreasonable for him to follow up with his primary care physician and a neurologist closer to his home for further evaluation if needed regarding MRI results. In terms of further workup for syncope, more than likely this will have to be an outpatient workup. Would recommend following up with his primary care physician with consideration for a 30 day cardiac event monitor and cardiology consult if needed. Also discussed with the patient making sure that he is well hydrated to make sure that syncope is not related to dehydration and hypotension. No additional neurological recommendations at this time. Thank you for allowing me to participate in this patient's care. Please call or page me if there is any additional concerns or questions.
--- NOTE | 2016-11-07 09:56 | EEG Procedure Note ---
EEG Procedure Note Date of Service Nov 07, 2016. Start / End Times Start Time: 9:11 AM End Time: 9:31 AM Referring Physician Marck Albrecht History This is a 71-year-old male who presented with a syncopal episode. EEG for further evaluation of possible seizure etiology. Home Medication List Scheduled Amlodipine (Norvasc), 10 MG PO QAM Aspirin (Aspirin Ec), 162 MG PO QAM Atenolol (Tenormin), 25 MG PO QAM Hydrochlorothiazide (Hctz), 25 MG PO QAM Terazosin Hcl (Hytrin), 2 MG PO HS Scheduled PRN Dimenhydrinate (Motion Sickness), 50 MG PO DIRECTED PRN for Dizziness or Vertigo Inpatient Medication List Current Inpatient Medications Medications (Trade) Dose Ordered Sig/Charlene Route Start Time Stop Time Status Last Admin Dose Admin Zolpidem Tartrate (Ambien Tab) 5 mg HSZ PRN PO 11/05/16 04:45 12/05/16 04:44 Nitroglycerin (Nitrostat Tab) 0.4 mg UD PRN SL 11/05/16 04:45 12/05/16 04:44 Amlodipine Besylate (Norvasc Tab) 10 mg QAM PO 11/05/16 09:00 12/05/16 08:59 11/07/16 07:48 10 MG Aspirin (Ecotrin Tab) 162 mg QAM PO 11/05/16 09:00 12/05/16 08:59 11/07/16 07:48 162 MG Terazosin HCl (Hytrin Cap) 2 mg HS PO 11/05/16 21:00 12/05/16 20:59 11/06/16 20:36 2 MG Lorazepam (Ativan Inj) 0.5 mg Q4H PRN IV 11/05/16 04:45 12/05/16 04:44 Acetaminophen (Tylenol Tab) 650 mg Q4H PRN PO 11/05/16 04:45 12/05/16 04:44 11/05/16 20:55 650 MG Diphenhydramine HCl 25 mg 25 mg Q4H PRN IV 11/05/16 04:45 12/05/16 04:44 Promethazine HCl/ Sodium Chloride (Phenergan Inj/ Nss 50ml) 50.5 ml @ 202 mls/hr Q4H PRN IV 11/05/16 04:45 12/05/16 04:44 Ondansetron HCl (Zofran Inj) 4 mg Q6H PRN IV 11/05/16 04:45 12/05/16 04:44 Morphine Sulfate 2 mg 2 mg Q2H PRN IV 11/05/16 04:45 11/19/16 04:44 Acetaminophen (Ofirmev Iv) 100 ml @ 400 mls/hr Q8H PRN IV 11/05/16 04:45 12/05/16 04:44 Atenolol (Tenormin Tab) 12.5 mg BID PO 11/05/16 09:00 12/05/16 08:59 11/07/16 07:48 12.5 MG Metoprolol Tartrate (Lopressor Iv) 5 mg Q5M PRN IV 11/07/16 05:00 11/07/16 05:03 5 MG Albuterol (Proair Hfa) 2 puffs Q4H PRN INH 11/07/16 07:45 12/07/16 07:44 11/07/16 07:48 2 PUFFS Description This is a 21 electrode EEG with a single channel dedicated to limited EKG. The electrodes were placed in accordance with the International 10-20 system. At the start of this recording the patient was in an awake state. Background was well organized and composed of symmetric mix of alpha and beta frequency. There was a symmetric well-formed moderate amplitude 8-9 Hz posterior dominant rhythm that is reactive to eye opening and closure. Hyperventilation was not done. Photic stimulation at various frequencies did not produce any abnormalities. Drowsiness was indicated by loss of muscle artifact and slowing of the background rhythm. There was no sleep transients. Interpretation This is a normal awake and drowsy routine EEG There was no electrographic seizures or epileptiform discharges. Clinical Correlation A normal EEG does not rule out epilepsy if there is a strong clinical suspicion.
[2016-11-07 10:47] LABS: PARTIAL THROMBOPLASTIN RATIO 1.1; PROTHROMBIN TIME (PATIENT) 10.7 SECONDS (9.0-12.0)
[2016-11-07] MEDS ORDERED: ONDANSETRON INJ 2 MG/ML 2 ML VIAL ONE (13:04)
[2016-11-07] MEDS ORDERED: LIDOCAINE HCL 2% 2 ML VIAL (20MG/ML) ONE (13:04)
[2016-11-07] MEDS ORDERED: NEOSTIGMINE METHYLSULFATE 1 MG/ML 10ML VIAL ONE ×2 (13:04→14:03)
[2016-11-07] MEDS ORDERED: FENTANYL CITRATE INJ 50 MCG/1 ML 2 ML VIAL ONE (13:04)
[2016-11-07] MEDS ORDERED: GLYCOPYRROLATE INJ 0.2 MG/ML VIAL ONE (13:04)
[2016-11-07] MEDS ORDERED: PROPOFOL IV EMULSION 10 MG/ML 20 ML VIAL IV ONE (13:04)
[2016-11-07] MEDS ORDERED: DIGOXIN INJ 500 MCG/2 ML AMP ONE (13:04)
[2016-11-07] MEDS ORDERED: MIDAZOLAM HCL 1 MG/ML 2ML VIAL ONE (13:04)
[2016-11-07] MEDS ORDERED: ROCURONIUM BROMIDE 10 MG/ML 5 ML VIAL ONE (13:04)
--- NOTE | 2016-11-07 15:08 | Hospitalist Progress Note ---
Hospitalist Progress Note Date of Service Nov 07, 2016. Subjective Pt evaluation today including: conversation w/ patient, physical exam, chart review, lab review, review of studies, review of inpatient medication list Patient had no acute issues overnight Denies any chest pain, weakness no event on telemetry or syncope Constitutional: No fever Eyes: No worsening of vision ENT: No hearing loss Respiratory: No cough, No shortness of breath Cardiovascular: No chest pain, No edema Abdomen: No diarrhea, No pain, No vomiting Musculoskeletal: No muscle pain Male : No dysuria Neurologic: No memory loss Psychiatric: No depression symptoms Endo: No fatigue Skin: No rash Medications Current Inpatient Medications Medications (Trade) Dose Ordered Sig/Charlene Route Start Time Stop Time Status Last Admin Dose Admin Zolpidem Tartrate (Ambien Tab) 5 mg HSZ PRN PO 11/05/16 04:45 12/05/16 04:44 Nitroglycerin (Nitrostat Tab) 0.4 mg UD PRN SL 11/05/16 04:45 12/05/16 04:44 Amlodipine Besylate (Norvasc Tab) 10 mg QAM PO 11/05/16 09:00 12/05/16 08:59 11/07/16 07:48 10 MG Aspirin (Ecotrin Tab) 162 mg QAM PO 11/05/16 09:00 12/05/16 08:59 11/07/16 07:48 162 MG Terazosin HCl (Hytrin Cap) 2 mg HS PO 11/05/16 21:00 12/05/16 20:59 11/06/16 20:36 2 MG Lorazepam (Ativan Inj) 0.5 mg Q4H PRN IV 11/05/16 04:45 12/05/16 04:44 Acetaminophen (Tylenol Tab) 650 mg Q4H PRN PO 11/05/16 04:45 12/05/16 04:44 11/05/16 20:55 650 MG Diphenhydramine HCl 25 mg 25 mg Q4H PRN IV 11/05/16 04:45 12/05/16 04:44 Promethazine HCl/ Sodium Chloride (Phenergan Inj/ Nss 50ml) 50.5 ml @ 202 mls/hr Q4H PRN IV 11/05/16 04:45 12/05/16 04:44 Ondansetron HCl (Zofran Inj) 4 mg Q6H PRN IV 11/05/16 04:45 12/05/16 04:44 Morphine Sulfate 2 mg 2 mg Q2H PRN IV 11/05/16 04:45 11/19/16 04:44 Acetaminophen (Ofirmev Iv) 100 ml @ 400 mls/hr Q8H PRN IV 11/05/16 04:45 12/05/16 04:44 Atenolol (Tenormin Tab) 12.5 mg BID PO 11/05/16 09:00 12/05/16 08:59 11/07/16 07:48 12.5 MG Metoprolol Tartrate (Lopressor Iv) 5 mg Q5M PRN IV 11/07/16 05:00 11/07/16 05:03 5 MG Albuterol (Proair Hfa) 2 puffs Q4H PRN INH 11/07/16 07:45 12/07/16 07:44 11/07/16 07:48 2 PUFFS Objective Vital Signs Date Time Temp Pulse Resp B/P Pulse Ox O2 Delivery O2 Flow Rate FiO2 11/07/16 08:00 Room Air 11/07/16 07:17 36.7 67 20 158/94 93 Room Air 11/07/16 06:09 66 168/95 94 Room Air 11/07/16 05:03 70 183/92 11/07/16 04:16 36.8 70 18 183/92 92 Room Air 11/07/16 04:00 95 Room Air 11/07/16 00:26 77 171/79 68 171/87 11/06/16 23:59 95 Room Air 11/06/16 23:53 37.0 68 18 178/92 95 Room Air 11/06/16 20:00 95 Room Air 11/06/16 19:51 36.8 65 22 171/87 95 Nasal Cannula 11/06/16 16:00 Room Air 11/06/16 15:32 36.9 70 18 168/87 96 Room Air 11/06/16 12:00 Room Air 11/06/16 11:53 37.0 68 16 134/74 93 Room Air Physical Exam General Appearance: WD/WN, no apparent distress Eyes: normal inspection ENT: normal ENT inspection Neck: supple, no adenopathy Respiratory/Chest: chest non-tender, lungs clear Cardiovascular: regular rate, rhythm, no edema Abdomen: normal bowel sounds, non tender, soft Extremities: normal range of motion, non-tender, normal inspection 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, no motor/sensory deficits, alert, oriented x 3 Skin: normal color, warm/dry Lymphatic: no adenopathy Laboratory Results Last 24 Hours Test 11/07/16 06:42 11/07/16 10:00 White Blood Count 4.96 K/uL Red Blood Count 3.94 M/uL Hemoglobin 11.4 g/dL Hematocrit 35.1 % Mean Corpuscular Volume 89.1 fL Mean Corpuscular Hemoglobin 28.9 pg Mean Corpuscular Hemoglobin Concent 32.5 g/dl Platelet Count 177 K/uL Mean Platelet Volume 10.7 fL Neutrophils (%) (Auto) 32.3 % Lymphocytes (%) (Auto) 51.8 % Monocytes (%) (Auto) 9.5 % Eosinophils (%) (Auto) 5.8 % Basophils (%) (Auto) 0.4 % Neutrophils # (Auto) 1.60 K/uL Lymphocytes # (Auto) 2.57 K/uL Monocytes # (Auto) 0.47 K/uL Eosinophils # (Auto) 0.29 K/uL Basophils # (Auto) 0.02 K/uL RDW Standard Deviation 45.5 fL RDW Coefficient of Variation 13.7 % Immature Granulocyte % (Auto) 0.2 % Immature Granulocyte # (Auto) 0.01 K/uL Sodium Level 143 mmol/L Potassium Level 3.9 mmol/L Chloride Level 105 mmol/L Carbon Dioxide Level 30 mmol/L Anion Gap 8.0 mmol/L Blood Urea Nitrogen 23 mg/dl Creatinine 1.70 mg/dl Est Creatinine Clear Calc Drug Dose 45.9 ml/min Estimated GFR () 46.7 Estimated GFR (Non- 40.3 BUN/Creatinine Ratio 13.5 Random Glucose 81 mg/dl Calcium Level 9.5 mg/dl Assessment and Plan Syncope - suspect 2/2 to dehydration - check orthostatics - per neurology do not suspect 2/2 to NPH - patient to have further workup with his PCP in [place] - outpatient w/u- loop recorder ? Normal Pressure Hydrocephalus - EEG does not showed epilepsy/ sleep EEG tonight - appreciate neurology - per neurology lumbar puncture would not be useful/ cancel lumbar puncture Acute renal Failure - unclear whether chronic vs acute on chronic - improving - appropriate urine output - check BMP in am/f/u BMP as outpatient HTN - controlled - cont atenolol and norvasc . FULL Code Disposition- home today
[2016-11-08 00:06] VITALS: BP 185/88; PULSE 61; TEMP 37.1; O2SAT 93
[2016-11-08] MEDS: METOPROLOL TARTRATE 1 MG/ML VIAL IV PRN (00:14)
[2016-11-08 01:35] VITALS: BP 159/87; PULSE 63
[2016-11-08 03:21] VITALS: BP 171/89; PULSE 65; TEMP 36.9; O2SAT 94
[2016-11-08 07:28] LABS: CALCIUM 9.8 mg/dl (8.5-10.1); CREATININE 1.7 mg/dl (0.60-1.40); POTASSIUM 4.2 mmol/L (3.5-5.1)
[2016-11-08 07:41] VITALS: BP_SYST 140; BP_SYST 151; BP_SYST 152; BP_DIAS 83; BP_DIAS 89; BP_DIAS 90; PULSE 60; PULSE 69; PULSE 78; TEMP 36.9; O2SAT 96
[2016-11-08] MEDS: AMLODIPINE BESYLATE 5 MG TAB PO SCH (08:30)
[2016-11-08] MEDS: ASPIRIN 81 MG ECTAB PO SCH (08:30)
[2016-11-08] MEDS ORDERED: TNR25 PO (10:37)
--- NOTE | 2016-11-08 10:38 | Discharge Instructions ---
Discharge Instructions Admission Admission Date: Nov 05, 2016 at 04:33 Admission Diagnosis: Altered Mental Status. Discharge Care Plan - Problem: Medical Problems: (1) Bradycardia (2) Marijuana use (3) Syncope Care Plan - Goal(s): Decrease discomfort, Improve function Care Plan - Instructions: Activity Recommendations: no limitations Recommended Home Diet: AHA Phase I (2gmNa/LoCho) Provider Instructions: Please follow up with your PCP in 1 week Please bring all discharge paperwork you received with you. VTE Core Measure Inpt VTE Proph given/why not?: SCD's [place] Recommendations: Call your doctor if: * Temperature above 101 degrees * Pain not relieved by pain medicine ordered * There is increased drainage or redness from any incision * You have any unanswered questions or concerns. Your Doctors Instructions noted above were prepared by provider Ying Randhawa.
[2016-11-08 10:43] VITALS: BP 140/83; PULSE 78; TEMP 36.9; O2SAT 96
--- NOTE | 2016-11-08 11:15 | Discharge Summary ---
Discharge Summary Admission Date: Nov 05, 2016 at 04:33 Discharge Date: Nov 08, 2016 Discharge Disposition: Home Principal Diagnosis: Dehydration/Syncope/Normal Pressure Hydrocephalus Consultations: Neurology Medication Reconciliation New Medications: Atenolol (Atenolol) 25 Mg Tab 12.5 MG PO BID for 30 Days, #30 TAB Continued Medications: Amlodipine (Norvasc) 10 Mg Tab 10 MG PO QAM, TAB Aspirin (Aspirin Ec) 81 Mg Tab 162 MG PO QAM Dimenhydrinate (Motion Sickness) 50 Mg Tab 50 MG PO DIRECTED PRN for Dizziness or Vertigo Hydrochlorothiazide (Hctz) 25 Mg Tab 25 MG PO QAM, TAB Terazosin Hcl (Hytrin) 2 Mg Cap 2 MG PO HS, CAP Discontinued Medications: Atenolol (Tenormin) 25 Mg Tab 25 MG PO QAM, TAB Discharge Exam Review of Systems: Constitutional: No chills, No fever Eyes: No worsening of vision ENT: No hearing loss Respiratory: No cough Abdomen: No nausea, No pain Musculoskeletal: No joint pain Genitourinary - Female: No dysuria Genitourinary - Male: No dysuria, No hematuria Neurologic: No memory loss Physical Exam: General Appearance: WD/WN, no apparent distress Eyes: normal inspection ENT: normal ENT inspection Neck: supple, no adenopathy Respiratory/Chest: chest non-tender, lungs clear Cardiovascular: regular rate, rhythm, no edema Abdomen / GI: normal bowel sounds, non tender, soft Extremities: normal inspection 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 Reports that he said for total of 6 events. On presentation to the ED admission CT scan showed mild ventricular dilatation. Findings were suspicious for normal pressure hydrocephalus. Patient was admitted to the hospitalist service for further workup. Neurology was consulted. Patient was placed on telemetry and had no events. It was thought patients syncope was due to dehydration and he was started on IV fluids. Neurology service did not think syncope was due to patients CT findings. Patients dizziness improved. Patient received an EEG which also showed no sign of seizures. The neurology team recommended patient follow up with his PCP in [place] for further workup of a lumbar puncture and loop recorder to workup etiologies of syncope and questionable hydrocephalus. I spoke with the Dr. Martin of the neurology team on 11/07/16 she stated patient was had no further neurologic testing that should be done as inpatient. Of note patient also suffered acute kidney injury, which improved with IVF. Patient should have BMP in 1 week Of note patient was also instructed to take 1/2 the dose of his atenolol due to HR >65 Total Time Spent: Greater than 30 minutes This includes examination of the patient, discharge planning, medication reconciliation, and communication with other providers. Discharge Instructions Please refer to the electronic Patient Visit Report (Discharge Instructions) for additional information.
== END 2016-11-08 13:03 | disposition home or self-care (01) | DRG 312 ==
LOC: ENRESERVTM → ENRESERVDT → C.EDC 01:35 → C.2T 04:33
PROVIDERS: ADMIT Hospitalist; ATTEND Hospitalist
DX: R55 Syncope and collapse (principal); G91.2 (Idiopathic) normal pressure hydrocephalus; N17.9 Acute kidney failure, unspecified; R40.4 Transient alteration of awareness; E86.0 Dehydration; N18.9 Chronic kidney disease, unspecified; I12.9 Hypertensive chronic kidney disease with stage 1 through stage 4 chronic kidney disease, or unspecified chronic kidney disease; E87.6 Hypokalemia; J45.909 Unspecified asthma, uncomplicated; E86.1 Hypovolemia; F12.90 Cannabis use, unspecified, uncomplicated; R00.1 Bradycardia, unspecified; R94.31 Abnormal electrocardiogram [ECG] [EKG]; I67.9 Cerebrovascular disease, unspecified; R79.89 Other specified abnormal findings of blood chemistry; Z79.82 Long term (current) use of aspirin; Z79.899 Other long term (current) drug therapy